=== PATIENT | male | born 1960 | race Caucasian/White ===

== ENCOUNTER 2017-05-11 06:33 | Inpatient (IN) | payer MEDICARE, OTHER ==
[~2017-05-11] VITALS: Ht 175.3 cm; Wt 75.2 kg
[~2017-05-11 06:33] MED LIST: ASPI-110 PO; BUPR150T12 PO; FENO134C PO; LISI10TA3 PO; OMEP20TA PO; RISP2TAB2 PO; SIMV40TA PO; TRAZ50TA12 PO
[2017-05-11] MEDS ORDERED: POVIDONE IODINE 5% (ANTISEPSIS KIT) 4 APPLICATIONS EACH NARE PRN (07:00)
[2017-05-11] MEDS ORDERED: SODIUM CHLORID 0.9% 500 ML IV PRN (07:00)
[2017-05-11] MEDS ORDERED: CHLORHEXIDINE GLUCONATE 2 % 1 PACK (2 CLOTHS) TOPICAL PRN (07:00)
[2017-05-11] MEDS ORDERED: APREPITANT 40 MG CAP PO SCH (07:00)
[2017-05-11] MEDS ORDERED: LACTATED RINGER'S 1000 ML IV PRN (07:00)
[2017-05-11] MEDS ORDERED: METOPROLOL TARTRATE 25 MG TAB PO PRN (07:00)
[2017-05-11] MEDS ORDERED: metroNIDAZOLE 500 MG INJ 100 ML IV SCH (07:00)
[2017-05-11] MEDS ORDERED: ACETAMINOPHEN 1000 MG/100 ML VIAL IV SCH (07:00)
[2017-05-11] MEDS ORDERED: INSULIN HUMAN REGULAR 1,000 UNITS/10 ML VIAL SQ PRN (07:00)
[2017-05-11] MEDS ORDERED: ceFAZolin 2 GM PREMIX 50 ML IV SCH (07:00)
[2017-05-11] MEDS ORDERED: ONDANSETRON HCL 4 MG/2 ML VIAL IV PUSH SCH (07:00)
[2017-05-11] MEDS ORDERED: BUPIVACAINE/EPINEPHRINE 0.25% 50 ML VIAL ONE (10:41)
[2017-05-11] MEDS ORDERED: MIDAZOLAM HCL 2 MG/2 ML VIAL ONE (11:23)
[2017-05-11] MEDS ORDERED: FAMOTIDINE 20 MG/2 ML VIAL ONE (11:24)
[2017-05-11] MEDS ORDERED: ROCURONIUM INJ 50 MG/5 ML VIAL IV ONE (12:00)
[2017-05-11] MEDS ORDERED: GLYCOPYRROLATE 0.2 MG/ML VIAL IV ONE (12:00)
[2017-05-11] MEDS ORDERED: PROPOFOL 200 MG/20 ML AMP IV ONE (12:00)
[2017-05-11] MEDS ORDERED: ePHEDrine/NS 25 MG/5 ML SYR IV ONE (12:00)
[2017-05-11] MEDS ORDERED: NEOSTIGMINE 3 MG/3 ML SYR IV ONE (12:00)
[2017-05-11] MEDS ORDERED: LACTATED RINGER'S 1000 ML INJ 1,000 ML IV ONE (12:00)
[2017-05-11] MEDS ORDERED: GLYCOPYRROLATE 0.4 MG/2 ML VIAL IV ONE (12:00)
[2017-05-11] MEDS ORDERED: ONDANSETRON HCL 4 MG/2 ML VIAL IV PUSH ONE (12:00)
[2017-05-11] MEDS ORDERED: HYDROmorphone HCL PF 2 MG/ML VIAL ONE (15:02)
[2017-05-11] MEDS ORDERED: SUGAMMADEX SODIUM 200 MG/2 ML VIAL IV PUSH ONE ×2 (15:02)
[2017-05-11] MEDS ORDERED: ONDANSETRON HCL 4 MG/2 ML VIAL IV PRN (15:45)
[2017-05-11] MEDS ORDERED: MORPHINE SULFATE 30 MG/30 ML PCA IV SCH (15:45)
[2017-05-11] MEDS ORDERED: ACETAMINOPHEN 325MG/HYDROcodone 7.5MG/15ML UDC PO PRN ×2 (15:45)
[2017-05-11] MEDS ORDERED: SODIUM CHLORIDE 0.9% FLUSH 10 ML FLUSH IV FLUSH PRN (15:45)
[2017-05-11] MEDS ORDERED: Post-op Orders (for Pharmacy) MISC XX ONE (15:45)
[2017-05-11] MEDS ORDERED: NALOXONE HCL 0.4 MG/ML AMP IV PRN (15:45)
[2017-05-11] MEDS ORDERED: HYDROmorphone HCL PF 1 MG/ML VIAL IV PRN (15:45)
[2017-05-11] MEDS ORDERED: DO NOT ADM ANY ANTICOAGULANT DRUGS PRN (16:08)
[2017-05-11] MEDS: SODIUM CHLOR 0.9% 1000 ML INJ 1,000 ML IV SCH (17:00)
[2017-05-11] MEDS: metroNIDAZOLE 500 MG INJ 100 ML IV SCH (18:00)
[2017-05-11 20:00] VITALS: BP 128/77; PULSE 74; RESP 18; TEMP 96.2; O2SAT 96
[2017-05-11] MEDS: PCA - TOTAL MG MORPHINE DELIVERED PER SHIFT SCH (21:32)
[2017-05-11] MEDS: SODIUM CHLORIDE 0.9% FLUSH 10 ML FLUSH IV FLUSH SCH (21:32)
[2017-05-12] VITALS: BP 125/79; PULSE 60; RESP 18; TEMP 97.6; O2SAT 95
[2017-05-12] MEDS: SODIUM CHLOR 0.9% 1000 ML INJ 1,000 ML IV SCH ×2 (00:36→12:00)
[2017-05-12] MEDS: metroNIDAZOLE 500 MG INJ 100 ML IV SCH ×2 (00:36→11:58)
[2017-05-12 04:00] VITALS: BP 123/72; PULSE 53; RESP 18; TEMP 97.5; O2SAT 97
[2017-05-12] MEDS: PCA - TOTAL MG MORPHINE DELIVERED PER SHIFT SCH (04:55)
[2017-05-12 08:00] VITALS: BP 137/71; PULSE 53; RESP 16; TEMP 97.1; O2SAT 97
[2017-05-12 08:55] VITALS: O2SAT 96
[2017-05-12] MEDS: SODIUM CHLORIDE 0.9% FLUSH 10 ML FLUSH IV FLUSH SCH (09:00)
[2017-05-12 12:00] VITALS: BP 133/74; PULSE 54; RESP 16; TEMP 96.7; O2SAT 95
[2017-05-12] MEDS ORDERED: ENOXAPARIN SODIUM 30 MG/0.3 ML SYRINGE SQ SCH (15:00)
--- NOTE | 2017-05-25 11:43 | MP ---
cc: NIKITA CARDONA DATE OF SURGERY: 05/11/2017 DATE OF : 1960 PREOPERATIVE DIAGNOSIS Large paraesophageal hernia. POSTOPERATIVE DIAGNOSIS Large paraesophageal hernia. PROCEDURE Robot-assisted laparoscopic paraesophageal hernia repair with Bio-A mesh. SURGEON Nikita Cardona. ANESTHESIA General endotracheal. ESTIMATED BLOOD LOSS Scant. FINDINGS Large paraesophageal hernia with the patient's entire stomach within the chest as well as a portion of his colon. SPECIMENS None. COMPLICATIONS None. OPERATION The patient was brought to the operating room and placed on the operating table in supine position. Bilateral sequential inflation devices were placed on the lower extremities. General anesthesia was instituted. A Boyd catheter was placed. Antibiotics were initiated. The abdomen was prepped and draped sterilely. A point 15 cm distal to the xiphoid in the midline was anesthetized with 0.25% Marcaine with epinephrine. A skin incision was made. A 5 mm port was placed under direct vision a pneumoperitoneum created. Under direct vision a 5 mm left upper quadrant port, a 10 mm robotic left upper quadrant port, and a 5 mm right upper quadrant port were placed. After placement of all ports the skin and peritoneum were anesthetized with 0.25% Marcaine with epinephrine. The patient was placed in reverse Trendelenburg position left side up. A Emerald-Flex retractor was placed. The left lobe of the liver was retracted. 0 silk sutures were placed into the abdominal cavity. Ray-Catalino gauze and a Humberto drain was placed as well. At this point the laparoscopic tower was removed from the patient's bedside and a da Abrahan robot was brought in and docked in place. Attention was focused in the epigastrium. The stomach was retracted into the abdominal cavity. The colon was retracted out of the hiatus. The hepatogastric ligament was opened. The crura of the right side of the diaphragm was dissected. The hernia sac was withdrawn into the abdominal cavity and from the esophagus. The esophagus was visualized and mobilized into the abdominal cavity. The hernia sac was excised. The crura of the diaphragm was then approximated with 0 silk suture in a [id number] manner. Three [id number] stitches were placed inferiorly. Bio-A mesh was opened on the back table. It was then trimmed and introduced into the peritoneal cavity. It was secured around the crura of the diaphragm using 0 silk sutures. At this point the robot was undocked. The laparoscopic tower was brought back and connected. All sutures, sponges and Humberto were removed from the peritoneal cavity. The hernia sac was removed from the peritoneal cavity. The operative field was inspected, hemostasis assured. The Emerald-Flex retractor was removed. The fascia at the 12 mm port was approximated with 0 Vicryl. The CO2 was released. All port sites were closed with 4-0 Monocryl. The abdominal wall was cleaned and sterile dressing placed. The patient was awakened and taken to the recovery room. MD AILYN Gomez/EULALIO /2:28 AM /11:19 AM
== END 2017-05-12 15:08 | disposition home or self-care (01) | DRG 327 ==
LOC: HSDI 06:33 → N07A 18:24
PROVIDERS: ADMIT Surgery; ATTEND Surgery
PROC: 8E0W4CZ Robotic Assisted Procedure of Trunk Region, Percutaneous Endoscopic Approach (ICD-10-PCS; 2017-05-11)
PROC: 0BUR4JZ (ICD-10-PCS; principal; 2017-05-11 11:25)
DX: K44.9 Diaphragmatic hernia without obstruction or gangrene (principal); F31.5 Bipolar disorder, current episode depressed, severe, with psychotic features; J44.9 Chronic obstructive pulmonary disease, unspecified; K21.9 Gastro-esophageal reflux disease without esophagitis; F17.210 Nicotine dependence, cigarettes, uncomplicated
CPT/HCPCS: C1781; J0131; J0690; J1170; J2250; J2270; J2405; J2710; J3010; J7030; J7120; J8501

== ENCOUNTER 2017-05-14 15:07 | Emergency (ER) | payer MEDICARE, OTHER ==
[~2017-05-14] VITALS: Ht 175.3 cm; Wt 86.0 kg
[~2017-05-14 15:07] MED LIST changes: -ASPI-110 PO; -FENO134C PO
[2017-05-14 15:16] VITALS: BP 137/80; PULSE 81; RESP 16; TEMP 98.2; O2SAT 93
[2017-05-14] MEDS ORDERED: IBUPROFEN 600 MG TAB PO ONE (15:30)
--- NOTE | 2017-05-14 15:36 | PD ---
HPI Chief Complaint: Fall Time Seen by Provider: 15:19 Travel History International Travel<30 days: No Contact w/Intl Traveler<30days: No Traveled to known affect area: No History of Present Illness HPI Patient is a 57-year-old male presents emergency department for evaluation of right-sided chest pain after rolling [place] a [place] the [place]. Patient has a history of recent laparoscopic reduction of paraesophageal hernia by Dr. Briggs. He states his been tolerating PO and denies any fevers blood in the stool or emesis. Denies any left-sided chest pain denies any shortness of breath. Symptoms started just prior to arrival, moderate in severity. PFSH Past Medical History Anemia: Yes (IRON DEFICIENCY) Arthritis: Yes (knees) Autoimmune Disease: No Depression: Yes Cancer: No Cardiovascular Problems: Yes High Cholesterol: Yes Chemotherapy: No COPD: Yes Diabetes: No Diminished Hearing: No Endocrine: No GERD: Yes Genitourinary: No Hepatitis: No Hiatal Hernia: Yes Hypertension: Yes Immune Disorder: No Musculoskeletal: Yes Neurologic: No Psychiatric: Yes Reproductive: No Respiratory: Yes Radiation Therapy: No Thyroid Disease: No Ulcer: No Past Surgical History Abdominal Surgery: Yes (HERNIA REPAIR) AICD: No Body Medical Devices: none per pt Genitourinary Surgery: Yes (TESTICLE REMOVED BENIGN FOR CANCER, VASTECTOMY) Joint Replacement: No Pacemaker: No Social History Alcohol Use: No Tobacco Use: No (1/2 PPD) Substance Use: No Allergies-Medications (Allergen,Severity, Reaction): Coded Allergies: No Known Allergies (Verified , 05/15/17) Reported Meds & Prescriptions Reported Meds & Active Scripts Active Ibuprofen 600 Mg Tab 600 Mg PO Q8H PRN Simvastatin 40 Mg Tab 40 Mg PO HS Omeprazole 20 Mg Tab 20 Mg PO DAILY Lisinopril 10 Mg Tab 10 Mg PO DAILY Trazodone (Trazodone HCl) 50 Mg Tab 50 Mg PO HS Risperidone 2 Mg Tab 2 Mg PO DAILY Review of Systems Except as stated in HPI: all other systems reviewed are Neg Physical Exam Narrative GENERAL: Well-developed well-nourished no obvious distress SKIN: Focused skin assessment warm/dry. HEAD: Atraumatic. Normocephalic. EYES: Pupils equal and round. No scleral icterus. No injection or drainage. ENT: No nasal bleeding or discharge. Mucous membranes pink and moist. NECK: Trachea midline. No JVD. CARDIOVASCULAR: Regular rate and rhythm. No murmur appreciated. No bruises no lacerations no abrasion seen. Right chest wall is minimally tender to palpation. RESPIRATORY: No accessory muscle use. Clear to auscultation. Breath sounds equal bilaterally. GASTROINTESTINAL: Abdomen soft, non-tender, nondistended. Hepatic and splenic margins not palpable. Surgical scars are clean dry and intact. Steri-Strips in place. MUSCULOSKELETAL: No obvious deformities. No clubbing. No cyanosis. No edema. NEUROLOGICAL: Awake and alert. No obvious cranial nerve deficits. Motor grossly within normal limits. Normal speech. PSYCHIATRIC: Appropriate mood and affect; insight and judgment normal. Data Data Last Documented VS Vital Signs Date Time Temp Pulse Resp B/P (MAP) Pulse Ox O2 Delivery O2 Flow Rate FiO2 05/14/17 17:00 78 16 150/84 (106) 98 Room Air 05/14/17 15:16 98.2 Orders Orders Ribs, Uni (W/O Exp Cxr) (05/14/17 ) Chest, Pa & Lat (05/14/17 ) Ibuprofen (Motrin) (05/14/17 15:30) MDM Medical Decision Making Medical Screen Exam Complete: Yes Emergency Medical Condition: Yes Differential Diagnosis Rib contusion, fall, rib fracture, pneumothorax unlikely. Narrative Course Patient is a 49-year-old male presents emergency department for evaluation of right-sided chest pain after fall off of a cot at the [facility],. Patient appears well in no obvious distress. Chest x-ray showed no right-sided rib fractures. He does have pleural effusion and a small pneumothorax on the left side. This was discussed with Dr. Briggs who 3 days ago performed reduction of a her esophageal hernia on this patient. Surgical scars appear well healed. The patient is in no obvious discomfort. Dr. Briggs and I discussed this is normal postoperative healing. The patient is stable for discharge. I've written him a prescription for by mouth ibuprofen tablets his been unable to fill his by mouth ibuprofen liquid. Diagnosis Primary Impression: Rib pain on right side Med/Other Pt SpecificInfo: Prescription(s) given Scripts Ibuprofen (Ibuprofen) 600 Mg Tab 600 MG PO Q8H Y for PAIN, #20 TAB 0 Refills Prov: Luis F Ray MD 05/14/17 Disposition: 01 DISCHARGE HOME Condition: Stable Luis F Ray MD May 14, 2017 15:36
--- NOTE | 2017-05-14 16:35 | RADRPT ---
EXAM DATE/TIME: 05/14/2017 15:53 [facility] COMPARISON: CHEST SINGLE AP, February 28, 2016, 20:14. CHEST PA & LAT, May 14, 2017, 15:55. INDICATIONS : Fall. Right rib pain. MEDICAL HISTORY : None. SURGICAL HISTORY : None. ENCOUNTER: Initial ACUITY: 1 day PAIN SCORE: 8/10 LOCATION: Right Ribs FINDINGS: Multiple views of the right ribs were performed. Old sixth seventh rib fractures on the right. The no acute fractures identified. CONCLUSION: Old right-sided rib fractures. No acute fracture identified. Jesus Jones MD on May 14, 2017 at 16:32 Board Certified Radiologist. This report was verified electronically.
--- NOTE | 2017-05-14 16:41 | RADRPT ---
EXAM DATE/TIME: 05/14/2017 15:55 [facility] COMPARISON: CHEST SINGLE AP, February 28, 2016, 20:14. INDICATIONS : Fall. Chest pain. MEDICAL HISTORY : None. SURGICAL HISTORY : None. ENCOUNTER: Initial ACUITY: 1 day PAIN SCORE: 8/10 LOCATION: chest FINDINGS: PA and lateral views of the chest. On the prior study of 02/28/2016 and was marked elevation of the le ft hemidiaphragm. Multiple air-fluid levels are now seen in the region of the left lung base and epig astric region. This finding may represent air-fluid levels within bowel/stomach. Hydropneumothorax wo uld also be in the differential diagnosis and possible pneumothorax component is seen in the lateral left upper lung zone. There is patchy atelectasis versus consolidation at the right lung base. CONCLUSION: Multiple air-fluid levels at the left lower hemithorax and epigastric region. May be related to diaph ragmatic hernia or bowel under elevated hemidiaphragm. Hydropneumothorax is also in the differential diagnosis with possible small pneumothorax component in the lateral left upper lung zone. These findi ngs could be further evaluated with noncontrast chest CT. Jesus Jones MD on May 14, 2017 at 16:35 Board Certified Radiologist. This report was verified electronically.
[2017-05-14 17:00] VITALS: BP 150/84; PULSE 78; RESP 16; O2SAT 98
[2017-05-14] MEDS ORDERED: IBUP-232 PO (17:16)
== END 2017-05-14 17:23 | disposition home or self-care (01) ==
LOC: NEPE 15:07
DX: R07.81 Pleurodynia (principal); W06.XXXA Fall from bed, initial encounter; Y92.89 Other specified places as the place of occurrence of the external cause; I10 Essential (primary) hypertension; K21.9 Gastro-esophageal reflux disease without esophagitis; D50.9 Iron deficiency anemia, unspecified; K44.9 Diaphragmatic hernia without obstruction or gangrene; Z98.890 Other specified postprocedural states
CPT/HCPCS: 71020; 71100; 99283

== ENCOUNTER 2017-05-15 02:23 | Emergency (ER) | payer MEDICARE, OTHER ==
[~2017-05-15] VITALS: Ht 175.3 cm; Wt 84.0 kg
[~2017-05-15 02:23] MED LIST changes: +IBUP-232 PO
[2017-05-15 02:44] VITALS: BP 123/83; PULSE 72; RESP 18; TEMP 98.9; O2SAT 92
--- NOTE | 2017-05-15 03:13 | RADRPT ---
EXAM DATE/TIME: 05/15/2017 02:58 [facility] COMPARISON: RIBS RIGHT(W PA CXR MIN 3VWS), November 05, 2009, 23:50. CHEST PA & LAT, May 14, 2017, 15:55. INDICATIONS : Cough. MEDICAL HISTORY : None. SURGICAL HISTORY : None. ENCOUNTER: Initial ACUITY: 1 day PAIN SCORE: 0/10 LOCATION: Bilateral chest FINDINGS: Small left pneumothorax is present. There is small fluid in the left pleural space, appears decreased from yesterday. Bibasilar atelectasis. Trace pleural effusion on the right. No right pneumothorax. There is right vol ume loss which appears chronic. No acute mediastinal shift demonstrated. Heart size stable, within normal limits. Probable hiatal hernia. CONCLUSION: 1. Bibasilar atelectasis. 2. Small left hydropneumothorax. Mario Ng MD on May 15, 2017 at 3:08 Board Certified Radiologist. This report was verified electronically.
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
[2017-05-15] MEDS ORDERED: SODIUM CHLORIDE 0.9% FLUSH 10 ML FLUSH IVF PRN (03:30)
[2017-05-15 04:28] LABS: AUTOMATED NEUTROPHIL # 7.5 TH/MM3 (1.8-7.7); BASOPHIL # 0.3 TH/MM3 (0-0.2); BASOPHIL % 2.4 % (0.0-2.0); EOSINOPHIL # 0.3 TH/MM3 (0-0.4); EOSINOPHIL % 3.1 % (0.0-4.0); HEMATOCRIT 39.5 % (39.0-51.0); HEMO FLAGS DIFF FINAL; LYMPH % 15.5 % (9.0-44.0); LYMPHOCYTE # 1.6 TH/MM3 (1.0-4.8); MEAN CELL VOLUME 82.7 FL (80.0-100.0); MEAN CORPUSCULAR HEMOGLOBIN 28.1 PG (27.0-34.0); MEAN CORPUSCULAR HGB CONC 33.9 % (32.0-36.0); MONO % 6.6 % (0.0-8.0); NEUT % 72.4 % (16.0-70.0); PLATELET COUNT 241 TH/MM3 (150-450); RED BLOOD COUNT 4.78 MIL/MM3 (4.50-5.90); RED CELL DISTRIBUTION WIDTH 13.3 % (11.6-17.2); WHITE BLOOD COUNT 10.4 TH/MM3 (4.0-11.0)
[2017-05-15 04:36] LABS: CHLORIDE 107 MEQ/L (98-107); POTASSIUM 3.7 MEQ/L (3.5-5.1); SODIUM (NA) 139 MEQ/L (136-145)
[2017-05-15 04:39] LABS: ANION GAP 8 MEQ/L (5-15); BICARBONATE 24.5 MEQ/L (21.0-32.0); BLOOD UREA NITROGEN 18 MG/DL (7-18); MAGNESIUM 2.2 MG/DL (1.5-2.5)
[2017-05-15 04:42] LABS: GLOMERULAR FILTRATION RATE 96 ML/MIN (>89)
[2017-05-15 04:56] VITALS: RESP 16; O2SAT 93
[2017-05-15] MEDS ORDERED: ONDANSETRON HCL 4 MG/2 ML VIAL IV PUSH ONE (05:00)
[2017-05-15 05:42] LABS: BLOOD, URINE SMALL (NEG); GLUCOSE,URINE NEG (NEG); KETONE, URINE NEG (NEG); NITRITE,URINE NEG (NEG)
[2017-05-15 06:04] VITALS: BP 136/79; PULSE 68; RESP 16; O2SAT 94
[2017-05-15 06:15] LABS: URINE COLOR YELLOW (YELLW/STRAW)
[2017-05-15 06:18] LABS: MUCUS URINE FEW /lpf (OCC)
[2017-05-15 06:19] LABS: COMMENT (UR) CULT NOT INDICATED; CULTURE IF INDICATED CULT NOT INDICATED; SQUAMOUS EPITHELIAL CELL URINE 0-5 /hpf (0-5)
--- NOTE | 2017-05-15 17:53 | EKG ---
Date Performed: 05/15/2017 Time Performed: 03:39:06 PTAGE: 57 years EKG: Sinus rhythm WITH SINUS ARRHYTHMIA LEFT VENTRICULAR HYPERTROPHY AND ST-T CHANGE ABNORMAL ECG PREVIOUS TRACING : 02/28/2016 19.51 Compared to prior tracing no significant change DOCTOR: Ajith Fulton Interpretating Date/Time 05/15/2017 17:52:57
== END 2017-05-15 07:06 | disposition home or self-care (01) ==
LOC: PHED 02:23
DX: R11.10 Vomiting, unspecified (principal); R07.9 Chest pain, unspecified
CPT/HCPCS: 71020; 80048; 81001; 83735; 84484; 85025; 93005; 96374; 99285; J2405